=== PATIENT | male | born 1970 | race Two or more races ===

== ENCOUNTER 2019-10-20 13:58 | Inpatient (IN) | payer MEDICARE, OTHER ==
[~2019-10-20] VITALS: Ht 172.7 cm; Wt 106.6 kg
[2019-10-20] MEDS ORDERED: ACET-868 PO (14:41)
[2019-10-20] MEDS ORDERED: FLUT16SP16 NS (14:41)
[2019-10-20] MEDS ORDERED: SCOP1PAT11 TD (14:41)
[2019-10-20] MEDS ORDERED: DOCU-141 PO (14:41)
[2019-10-20] MEDS ORDERED: PANT40TA4 PO (14:41)
[2019-10-20] MEDS ORDERED: OXYC30TA48 PO (14:41)
[2019-10-20] MEDS ORDERED: TRAZ-257 PO (14:41)
[2019-10-20] MEDS ORDERED: METO25TA6 PO (14:41)
[2019-10-20] MEDS ORDERED: PRAV80TA21 PO (14:41)
[2019-10-20] MEDS ORDERED: ERGO500040 PO (14:41)
[2019-10-20] MEDS ORDERED: INSU100C10 SQ (14:41)
[2019-10-20] MEDS ORDERED: HYDR4TAB4 PO (14:41)
[2019-10-20] MEDS ORDERED: LOSA50TA39 PO (14:41)
[2019-10-20] MEDS ORDERED: SENN-168 PO (14:41)
[2019-10-20] MEDS ORDERED: BUPR-96 PO (14:41)
[2019-10-20] MEDS ORDERED: FLUT1DIS3 IH (14:41)
[2019-10-20] MEDS ORDERED: IBUP-1953 PO (14:41)
[2019-10-20] MEDS ORDERED: METH500T7 PO (14:41)
[2019-10-20 16:00] VITALS: BP 163/93
[2019-10-20] MEDS ORDERED: BLOOD SUGAR DIAGNOSTIC 1 EACH STRIP IN ONE ×2 (16:30→17:00)
[2019-10-20] MEDS ORDERED: MAG HYDROX/AL HYDROX/SIMETH 30 ML UDC PO PRN ×2 (16:30→17:00)
[2019-10-20] MEDS ORDERED: TEMAZEPAM 7.5 MG CAPSULE PO PRN ×2 (16:30→17:00)
[2019-10-20] MEDS ORDERED: MAGNESIUM HYDROXIDE 30 ML UDC PO PRN ×2 (16:30→17:00)
[2019-10-20] MEDS ORDERED: clonazePAM 0.5 MG TABLET PO PRN ×2 (16:30→17:00)
[2019-10-20 16:56] VITALS: BP 157/88
[2019-10-20] MEDS ORDERED: BUPROPION XL 150 MG TAB.ER.24 PO SCH (17:00)
--- NOTE | 2019-10-20 18:21 | NUR ---
SUPERVISOR PRE WAVE NOTE: PATIENT IS A 49 YEAR OLD MALE ADMITTED FROM [facility] ADMITTED ON A 5150 DTS. PER HOLD, "PT REPORTS ABDOMINAL PAIN AND THOUGHTS OF SUICIDE. HE INGESTED EXCESSIVE AMOUNTS OF TYLENOL. PT CANT CONTRACT FOR SAFETY." UPON FACE TO FACE ASSESSMENT, PATIENT IS ALERT AND ORIENTED X3, WELL GROOMED, CLEAR SPEECH, DENIES SI/HI VAH AT THIS TIME. COOPERATIVE, HOPELESS, DEPRESSED, GUARDED, ISOLATIVE, PASSIVE, FLAT AFFECT, DISORGANIZED THINKING. PATIENT IS AMBULATORY WITH WALKER. ABLE TO FOCUS ON TOPICS. VSS. NO ACUTE DISTRESS NOTED. INFORMED DR MARCANO AND DR ROSS OF ADMISSION WITH PSYCHIATRIC ADMITTING ORDERS/ MED RECON. NKA. UNIT ORIENTATION COMPLETE, HANDBOOK GIVEN WITH PATIENT'S RIGHTS AND GUIDE TO PRESCRIPTIONS. SKIN INTACT. CONTACTED ELIJAH PURI (DAUGHTER) AND INFORMED HER ABOUT ADMISSION. WILL CONTINUE TO MONITOR PATIENT Q15 MINUTES FOR SAFETY AND BEHAVIOR PER GPS PROTOCOL. Addendum: 10/20/19 at 1853 by CHERELLE GONZALEZ RN CARE PLAN NOT DONE. WILL ENDORSE TO FOLLOWING SHIFT.
[2019-10-20] MEDS ORDERED: SCOPOLAMINE HBR 1 EA PATCH.TD72 TD SCH (20:00)
[2019-10-20] MEDS ORDERED: HYDROMORPHONE HCL 2 MG TABLET PO PRN (20:00)
[2019-10-20] MEDS ORDERED: FLUTICASONE/SALMETEROL 1 DISK IH SCH (20:00)
[2019-10-20] MEDS ORDERED: METHOCARBAMOL (500MG) 500 MG TABLET PO PRN (20:00)
[2019-10-20] MEDS ORDERED: IBUPROFEN 600 MG TABLET PO PRN (20:00)
[2019-10-20 20:19] VITALS: BP 145/79
[2019-10-20] MEDS: oxyCODONE IR immediate release 5 MG PO PRN (20:58)
--- NOTE | 2019-10-20 21:01 | NUR ---
GPS RN NOTES: PT C/O OF PAIN ON BOTH KNEE AND BACK PAIN. PT STATED IS RATES AT A 8 OUT OF 10 PAIN. PT STATED, " CAN I HAVE MY OXY PLEASE FOR THIS PAIN?" CHECKED PTS VITALS WNL. ADMINISTER OXYCODONE 30MG PRN ORDERED. CONTINUE TO MONITOR.
[2019-10-20] MEDS ORDERED: PRAVASTATIN SODIUM 20 MG TABLET PO SCH (22:00)
[2019-10-20] MEDS: TRAZODONE 50 MG TABLET PO SCH (22:20)
[2019-10-20] MEDS: METOPROLOL TARTRATE 25 MG TABLET PO SCH (22:21)
[2019-10-20] MEDS: ATORVASTATIN 10 MG TABLET PO SCH (22:21)
[2019-10-20] MEDS: ARIPIPRAZOLE 5 MG TABLET PO SCH (22:22)
[2019-10-21 03:30] VITALS: BP 138/65
[2019-10-21] MEDS: oxyCODONE IR immediate release 5 MG PO PRN ×3 (03:39→18:08)
--- NOTE | 2019-10-21 03:45 | NUR ---
GPS RN NOTES: PT C/O OF PAIN ON BOTH KNEES. PT EXPRESSED FACIAL GRIMACE. WHEN ASKED PT TO RATE THE PAIN FROM 0-10. PT STATED IS RATES AT A 8 OUT OF 10 PAIN. PT STATED, " BOTH OF MY KNEES ARE IN PAIN RIGHT NOW. I NEED PAIN MEDICATION." CHECKED PTS VITALS WNL BP 138/65 HEART RATE 64, O2 SATURATION 96% RESPIRATION 20, TEMPT 98.0. ADMINISTER OXYCODONE 30MG PRN ORDERED. CONTINUE TO MONITOR.
[2019-10-21 06:52] LABS: ALBUMIN 3.5 g/dL (3.4-5.0); BILIRUBIN,TOTAL 0.8 mg/dL (0.2-1.0); CALCIUM, SERUM 8.4 mg/dL (8.5-10.1); CREATININE 0.8 mg/dL (0.6-1.3); POTASSIUM 3.2 mmol/L (3.5-5.1); TOTAL PROTEIN, SERUM 7.6 g/dL (6.4-8.2)
[2019-10-21 07:10] LABS: CHOLESTEROL 131 mg/dL (<200); HDL CHOLESTEROL 44 mg/dL (40-60); LDL 73 mg/dL (0-99); TRIGLYCERIDES 113 mg/dL (30-150)
[2019-10-21 08:00] VITALS: BP 146/77
[2019-10-21] MEDS: SENNOSIDES 8.6 MG TABLET PO SCH (08:42)
[2019-10-21] MEDS: PANTOPRAZOLE 40 MG TABLET.DR PO SCH ×2 (08:42→16:35)
[2019-10-21] MEDS: DOCUSATE SODIUM 100 MG CAPSULE PO SCH ×2 (08:42→08:44)
[2019-10-21] MEDS: LOSARTAN POTASSIUM 50 MG TABLET PO SCH ×2 (08:42→16:34)
[2019-10-21] MEDS: FLUTICASONE/VILANTEROL 1 EACH BLST.W.DEV IH SCH ×2 (08:47→08:50)
[2019-10-21] MEDS: POTASSIUM CHLORIDE 20 MEQ TAB.PRT.SR PO SCH ×2 (11:04→12:13)
--- NOTE | 2019-10-21 11:05 | NUR ---
RN NOTE: PT C/O 07/11 BILAT KNEE AND LOWER BACK PAIN. PT EXHIBITED FACIAL GRIMACE, GUARDING AND RUBBING SITE, LAYING IN BED. MED WITH OXYCODONE 30MG PO PRN. WILL EVALUATE EFFECTIVENESS.
--- NOTE | 2019-10-21 15:29 | NUR ---
INITIAL DISCHARGE PLAN: Patient wishes to return to his daughter Seda's house [address] [place] [address]. SW attempted to contact pts daughter Seda [phone] and left a voicemail for call back. VICKY will help form a safe and proper discharge in collaboration with .
--- NOTE | 2019-10-21 15:31 | NUR ---
FAMILY CONTACT: SW received a call from pts daughter Seda [phone] who confirmed that pt currently lives with her and is able to return home once stable for discharge.
[2019-10-21 16:00] VITALS: BP 131/70
[2019-10-21 20:25] VITALS: BP 155/85
[2019-10-21] MEDS: ARIPIPRAZOLE 5 MG TABLET PO SCH (22:05)
[2019-10-21] MEDS: METOPROLOL TARTRATE 25 MG TABLET PO SCH (22:06)
[2019-10-21] MEDS: ATORVASTATIN 10 MG TABLET PO SCH (22:07)
[2019-10-21] MEDS: TRAZODONE 50 MG TABLET PO SCH (22:08)
[2019-10-22] MEDS: oxyCODONE IR immediate release 5 MG PO PRN ×4 (00:29→23:19)
[2019-10-22 08:00] VITALS: BP 151/88
[2019-10-22] MEDS: SENNOSIDES 8.6 MG TABLET PO SCH (08:25)
[2019-10-22] MEDS: PANTOPRAZOLE 40 MG TABLET.DR PO SCH ×2 (08:25→16:09)
[2019-10-22] MEDS: DOCUSATE SODIUM 100 MG CAPSULE PO SCH ×2 (08:25→16:05)
[2019-10-22] MEDS: LOSARTAN POTASSIUM 50 MG TABLET PO SCH ×2 (08:25→16:22)
[2019-10-22] MEDS: FLUTICASONE/VILANTEROL 1 EACH BLST.W.DEV IH SCH (08:27)
--- NOTE | 2019-10-22 15:27 | NUR ---
SS Group Note 10/22/19: Goal: Patient will attend group held today from 2-2:30pm in the activities room and participate and/or actively listen to peers and be respectful. Intervention: SW facilitated group session with patients regarding what they would like to see change as a result of their stay here. SW explored reason for isolating. SW used reflective listening, validated and normalized the patients hesitation to discuss mental health with family. SW explored patients support system. SW educated pt. about therapy/support group benefits. SW will provide Medicare and [facility] approved outpatient therapists for pt. upon discharge. Response: Patient was agreeable to participating in group session. The patient expressed that he tends to isolate when he is under a lot of pain because he does not want to worry or burden his children. Per patient he is under so much pain at times that he does not value his life. Patient stated that he has so much to live for including: family, specially his granddaughter who he is the father figure for. Per patient, he doesnt really have someone to vent/ talk to about his mental health. Patient stated that he would be open to receiving outpatient therapy or support group services. The pt. remained calm and cooperative throughout group and was respectful towards his peers as they shared. Plan: Patient will be invited to attend next socially responsible investment adviser group session held.
[2019-10-22 16:00] VITALS: BP 135/63
--- NOTE | 2019-10-22 19:30 | NUR ---
GPS RN NOTE, RECEIVED PATIENT AWAKE AND IN BED, NO S/S OR COMPLAINTS OF PAIN AT THIS TIME. PATIENT IS DISPLAYING NO S/S OF APPARENT DISTRESS AT THIS TIME. PATIENT BREATHING IS UNLABORED WITH EQUAL RISE AND FALL OF THE CHEST. PATIENT IS ALERT AND ORIENTED X 3 ON ROOM AIR WITH A SPO2 98%. PATIENT COMPLAINT WITH MEDICATION, ANXIOUS, COOPERATIVE, MED SEEKING, GUARDED, SUSPICIOUS, AND NEEDS REORIENTATION. PATIENT DENIES SUICIDE AND HOMICIDAL IDEATIONS AT THIS TIME. PATIENT ASSISTED WITH TURNING AND REPOSITIONING Q2HR AND PRN FOR COMFORT AND CIRCULATION. PATIENT HAS NO NEEDS AT THIS TIME. PATIENT EDUCATED ON THE USE OF THE CALL [place]. PATIENT BED SIDE RAILS UP X2 FOR SAFETY, BED IS LOCKED AND LOW WILL CONTINUE TO MONITOR AND MAINTAIN SAFETY.
[2019-10-22 20:35] VITALS: BP 148/94
[2019-10-22] MEDS: TRAZODONE 50 MG TABLET PO SCH (21:41)
[2019-10-22] MEDS: ATORVASTATIN 10 MG TABLET PO SCH (21:41)
[2019-10-22] MEDS: METOPROLOL TARTRATE 25 MG TABLET PO SCH (21:42)
[2019-10-22] MEDS ORDERED: ARIPIPRAZOLE 5 MG TABLET PO SCH (22:00)
[2019-10-23] MEDS: oxyCODONE IR immediate release 5 MG PO PRN ×3 (06:36→19:36)
[2019-10-23 08:00] VITALS: BP 160/73
[2019-10-23] MEDS: DOCUSATE SODIUM 100 MG CAPSULE PO SCH ×2 (08:10→17:56)
[2019-10-23] MEDS: PANTOPRAZOLE 40 MG TABLET.DR PO SCH ×2 (08:10→17:56)
[2019-10-23] MEDS: FLUTICASONE/VILANTEROL 1 EACH BLST.W.DEV IH SCH (08:11)
[2019-10-23] MEDS: SENNOSIDES 8.6 MG TABLET PO SCH (08:11)
[2019-10-23] MEDS: LOSARTAN POTASSIUM 50 MG TABLET PO SCH ×3 (08:11→17:56)
--- NOTE | 2019-10-23 15:43 | NUR ---
GPS/RN PT C/O PAIN LEFT WRIST AND STATES HE HAD A FALL AT [facility]OUS [facility] WITHOUT XR TAKEN. DR BILLY CONTACTED VIA EXCHANGE AND ORDER PLACED FOR X RAY LEFT WRIST.
[2019-10-23 16:00] VITALS: BP 146/91
--- NOTE | 2019-10-23 19:13 | NUR ---
GPS/RN NOTE: AWAKE. ALERT, ORIENTED X3, DENIES ANY PAIN. NO APPARENT NOTED AT THIS TIME. WILL CONTINUE TO MONITOR.
--- NOTE | 2019-10-23 19:36 | NUR ---
GPS/RN NOTE: C/O SHARP PAIN ON HIS BACK AND KNEE, 8/10 ON PAIN SCALE, OXY IR 30 MG PO GIVEN
[2019-10-23 19:52] VITALS: BP 149/93
--- NOTE | 2019-10-23 20:23 | NUR ---
GPS/RN NOTE: C/O HEART BURN, MAALOX 30 ML PO GIVEN
[2019-10-23] MEDS: ATORVASTATIN 10 MG TABLET PO SCH (21:06)
[2019-10-23] MEDS: TRAZODONE 50 MG TABLET PO SCH (21:06)
[2019-10-23] MEDS: ARIPIPRAZOLE 5 MG TABLET PO SCH (21:06)
[2019-10-23] MEDS: METOPROLOL TARTRATE 25 MG TABLET PO SCH (21:07)
[2019-10-24] MEDS: oxyCODONE IR immediate release 5 MG PO PRN ×3 (05:24→21:11)
--- NOTE | 2019-10-24 05:25 | NUR ---
GPS/RN NOTE: UP TO NURSE'S STATION C/O BACK PAIN AND KNEE PAIN AT THE SAME TIME, 8/10 ON PAIN SCALE, OXY IR 30 MG PO GIVEN
[2019-10-24 08:00] VITALS: BP 169/71
[2019-10-24] MEDS: PANTOPRAZOLE 40 MG TABLET.DR PO SCH ×2 (08:51→16:30)
[2019-10-24] MEDS: SENNOSIDES 8.6 MG TABLET PO SCH (08:51)
[2019-10-24] MEDS: LOSARTAN POTASSIUM 50 MG TABLET PO SCH ×2 (08:51→16:31)
[2019-10-24] MEDS: DOCUSATE SODIUM 100 MG CAPSULE PO SCH ×2 (08:51→16:30)
[2019-10-24] MEDS: FLUTICASONE/VILANTEROL 1 EACH BLST.W.DEV IH SCH (08:56)
[2019-10-24 16:00] VITALS: BP 149/81
[2019-10-24 20:17] VITALS: BP 147/93
--- NOTE | 2019-10-24 20:39 | NUR ---
RECEIVED PT IN ROOM LYING IN BED, ALERT AND ORIENTED X3, NO S/S OF DISTRESS, RESPIRATION EVEN AND UNLABORED. ENVIRONMENTAL SAFETY CHECK DONE. FALL RISK MEASURES TAKEN. BED LOCKED AND IN LOWEST POSITION. BED ALARM ON. FLUID OFFERED TOLERATED. WILL CONTINUE TO MONITOR Q15 MINS. FOR MOOD, SAFETY AND Addendum: 10/24/19 at 2314 by ESTELLE MIRAMONTES RN THIS IS AN [facility]OTHER [facility]. RECEIVED PT IN ROOM LYING IN BED, ALERT AND ORIENTED X3, NO S/S OF DISTRESS, RESPIRATION EVEN AND UNLABORED. ENVIRONMENTAL SAFETY CHECK DONE. DENIES OMAYRA GRIFFITHS AT THIS TIME. MEDICATION COMPLIANT. FALL RISK MEASURES TAKEN. BED LOCKED AND IN LOWEST POSITION. BED ALARM ON. FLUID OFFERED TOLERATED. WILL CONTINUE TO MONITOR Q15 MINUTES FOR MOOD, SAFETY AND BEHAVIOR.
[2019-10-24] MEDS: ATORVASTATIN 10 MG TABLET PO SCH (21:13)
[2019-10-24] MEDS: METOPROLOL TARTRATE 25 MG TABLET PO SCH (21:14)
[2019-10-24] MEDS: TRAZODONE 50 MG TABLET PO SCH (21:50)
[2019-10-24] MEDS: ARIPIPRAZOLE 5 MG TABLET PO SCH (21:51)
--- NOTE | 2019-10-25 01:00 | NUR ---
PT REPORTED CHRONIC BACK, BILATERAL LOWER EXTREMITIES AND GENERALIZED BODY PAIN OF 8-9/10. REQUESTED FOR PAIN MED, OXY Ir 5MG, 6 TABS 30MG GIVEN PO AT 2110. PT WAS REASSESSED 2140. DENIES ANY PAIN. WILL CONTINUE TO MONITOR.
[2019-10-25] MEDS: oxyCODONE IR immediate release 5 MG PO PRN ×3 (05:13→19:28)
[2019-10-25 08:00] VITALS: BP 135/78
[2019-10-25] MEDS: DOCUSATE SODIUM 100 MG CAPSULE PO SCH ×2 (08:20→16:08)
[2019-10-25] MEDS: LOSARTAN POTASSIUM 50 MG TABLET PO SCH ×2 (08:20→16:33)
[2019-10-25] MEDS: SENNOSIDES 8.6 MG TABLET PO SCH (08:20)
[2019-10-25] MEDS: PANTOPRAZOLE 40 MG TABLET.DR PO SCH ×2 (08:20→16:33)
[2019-10-25] MEDS: ERGOCALCIFEROL (VITAMIN D 2) 50,000 UNIT CAPSULE PO SCH (08:24)
[2019-10-25] MEDS: FLUTICASONE/VILANTEROL 1 EACH BLST.W.DEV IH SCH (08:25)
[2019-10-25 16:00] VITALS: BP 146/91
[2019-10-25 20:12] VITALS: BP 140/84
[2019-10-25] MEDS: TRAZODONE 50 MG TABLET PO SCH (21:55)
[2019-10-25] MEDS: ATORVASTATIN 10 MG TABLET PO SCH (21:55)
[2019-10-25] MEDS: ARIPIPRAZOLE 5 MG TABLET PO SCH (21:55)
[2019-10-25] MEDS: METOPROLOL TARTRATE 25 MG TABLET PO SCH (21:56)
[2019-10-26] MEDS: oxyCODONE IR immediate release 5 MG PO PRN ×3 (04:49→17:39)
--- NOTE | 2019-10-26 04:51 | NUR ---
PT WOKE UP AT 0445 COMPLAINING SEVERE PAIN OF 9/10 ON BACK, AND KNEE. OXY IR 30 MG PO GIVEN. WILL CONTINUE TO MONITOR.
--- NOTE | 2019-10-26 06:12 | NUR ---
PT REFUSED PICTURES D/O PAIN
[2019-10-26 08:00] VITALS: BP 142/82
[2019-10-26] MEDS: SENNOSIDES 8.6 MG TABLET PO SCH (08:08)
[2019-10-26] MEDS: DOCUSATE SODIUM 100 MG CAPSULE PO SCH ×2 (08:08→16:05)
[2019-10-26] MEDS: PANTOPRAZOLE 40 MG TABLET.DR PO SCH ×2 (08:08→16:05)
[2019-10-26] MEDS: LOSARTAN POTASSIUM 50 MG TABLET PO SCH ×2 (08:09→16:06)
[2019-10-26] MEDS: FLUTICASONE/VILANTEROL 1 EACH BLST.W.DEV IH SCH (09:00)
--- NOTE | 2019-10-26 11:10 | NUR ---
GPS/RN NOTE: PATIENT C/O BACK GENERALIZED PAIN AND KNEE PAIN AT THE SAME TIME, 8/10 ON PAIN SCALE, OXY IR 30 MG PO GIVEN
--- NOTE | 2019-10-26 15:15 | NUR ---
SS GROUP NOTE 10/26/19 Goal: Patient will attend group held today from 2-2:30pm in the activities room and participate and/or actively listen to peers and be respectful. Intervention: SW facilitated group session with patients regarding recognizing positive aspects in their life. SW explored: things, people places they adore; one thing they have worked hard to achieve; one thing thats going well right now; two subjects or pursuits youre passionate about; two people you can count on; three things they look forward to. Response: Patient was agreeable to participating in group session. Patients, mood was WNL. The pt. shared with the group that she is thankful for his granddaughter. Pt. shared that his hobby of painting brings him Reina. Patient stated he looks forward to recuperating. The pt. remained calm and cooperative throughout group and was respectful towards her peers as they shared. Plan: Patient will be invited to attend next vp digital marketing social media and crm group session held and be encouraged to actively participate in group.
[2019-10-26 16:00] VITALS: BP 129/72
[2019-10-26] MEDS: ESCITALOPRAM OXALATE (10 MG) 10 MG TABLET PO SCH (16:05)
--- NOTE | 2019-10-26 17:40 | NUR ---
GPS/RN NOTE: PATIENT C/O GENERALIZED PAIN AND KNEE PAIN AT THE SAME TIME, 8/10 ON PAIN SCALE, OXY IR 30 MG PO GIVEN
[2019-10-26 20:59] VITALS: BP 150/95
[2019-10-26] MEDS: ARIPIPRAZOLE 5 MG TABLET PO SCH (21:36)
[2019-10-26] MEDS: ATORVASTATIN 10 MG TABLET PO SCH (21:36)
[2019-10-26] MEDS: TRAZODONE 50 MG TABLET PO SCH (21:36)
[2019-10-26] MEDS: METOPROLOL TARTRATE 25 MG TABLET PO SCH (21:36)
[2019-10-26 23:00] VITALS: BP 135/70
[2019-10-27] MEDS: oxyCODONE IR immediate release 5 MG PO PRN ×3 (02:36→16:36)
[2019-10-27 08:00] VITALS: BP 155/78
[2019-10-27] MEDS: FLUTICASONE/VILANTEROL 1 EACH BLST.W.DEV IH SCH (08:45)
[2019-10-27] MEDS: ESCITALOPRAM OXALATE (10 MG) 10 MG TABLET PO SCH (08:46)
[2019-10-27] MEDS: DOCUSATE SODIUM 100 MG CAPSULE PO SCH ×2 (08:46→16:35)
[2019-10-27] MEDS: LOSARTAN POTASSIUM 50 MG TABLET PO SCH ×2 (08:46→16:35)
[2019-10-27] MEDS: SENNOSIDES 8.6 MG TABLET PO SCH (08:46)
[2019-10-27] MEDS: PANTOPRAZOLE 40 MG TABLET.DR PO SCH ×2 (08:47→16:35)
--- NOTE | 2019-10-27 10:30 | NUR ---
PATIENT C/O 9/10 PAIN. PRN OXY PO GIVEN.
[2019-10-27 16:00] VITALS: BP 120/63
--- NOTE | 2019-10-27 16:37 | NUR ---
PATIENT C/O 9/10 PAIN. PRN OXY PO GIVEN.
--- NOTE | 2019-10-27 20:00 | NUR ---
GPS RN NOTE: PATIENT AWAKE, ALERT AND ORIENTED X 3-4, CALM, COOPERATIVE, C/O STUFFY NOSE AND ASKING FOR NASAL SPRAY. NOTIFIED ANIKA OLIVER WITH ORDERS GIVEN NOTED AND CARRIED OUT. WILL CONTINUE TO MONITOR Q15 MINS FOR SAFETY
[2019-10-27 20:56] VITALS: BP 155/93
[2019-10-27] MEDS ORDERED: ARIPIPRAZOLE 5 MG TABLET PO SCH (22:00)
[2019-10-27] MEDS: FLUTICASONE PROPIONATE 16 GM BOTTLE NS SCH (22:04)
[2019-10-27] MEDS: TRAZODONE 50 MG TABLET PO SCH (22:05)
[2019-10-27] MEDS: ATORVASTATIN 10 MG TABLET PO SCH (22:05)
[2019-10-27] MEDS: BENZTROPINE MESYLATE (1 MG) 1 MG TABLET PO SCH (22:05)
[2019-10-27] MEDS: METOPROLOL TARTRATE 25 MG TABLET PO SCH (22:06)
[2019-10-28] MEDS: oxyCODONE IR immediate release 5 MG PO PRN ×3 (04:56→18:46)
[2019-10-28 08:00] VITALS: BP 137/74
[2019-10-28] MEDS: FLUTICASONE/VILANTEROL 1 EACH BLST.W.DEV IH SCH (08:13)
[2019-10-28] MEDS: FLUTICASONE PROPIONATE 16 GM BOTTLE NS SCH (08:13)
[2019-10-28] MEDS: LOSARTAN POTASSIUM 50 MG TABLET PO SCH ×2 (08:14→16:50)
[2019-10-28] MEDS: PANTOPRAZOLE 40 MG TABLET.DR PO SCH ×2 (08:14→16:50)
[2019-10-28] MEDS: ESCITALOPRAM OXALATE (10 MG) 10 MG TABLET PO SCH (08:14)
[2019-10-28] MEDS: DOCUSATE SODIUM 100 MG CAPSULE PO SCH ×2 (08:14→16:50)
[2019-10-28] MEDS: SENNOSIDES 8.6 MG TABLET PO SCH (08:14)
--- NOTE | 2019-10-28 11:33 | NUR ---
RN NOTE: PATIENT C/O 9/10 PAIN. PRN OXY PO GIVEN.
[2019-10-28 16:00] VITALS: BP 116/52
--- NOTE | 2019-10-28 18:47 | NUR ---
PATIENT C/O 910 PAIN. PRN OXY GIVEN
--- NOTE | 2019-10-28 19:20 | NUR ---
GPS RN NOTES RECEIVED OOB TO WHEELCHAIR,A/O X4,ABLE TO VERBALIZED NEEDS,DENIES SUICIDAL IDEATION,NOR HEARING VOICES.CLAIMED PAIN ON LEFT KNEE IMPROVED,PAIN MANAGEMENT EFFECTIVE.MED COMPLIANT.WILL CONTINUE TO MONITOR BEHAVIOR Q 15 MINUTES AND MANAGE ACCORDINGLY.
[2019-10-28 20:00] VITALS: BP 144/73
[2019-10-28] MEDS: BENZTROPINE MESYLATE (1 MG) 1 MG TABLET PO SCH (21:31)
[2019-10-28] MEDS: TRAZODONE 50 MG TABLET PO SCH (21:32)
[2019-10-28] MEDS: ATORVASTATIN 10 MG TABLET PO SCH (21:34)
[2019-10-28 21:35] VITALS: BP 144/73
[2019-10-28] MEDS: METOPROLOL TARTRATE 25 MG TABLET PO SCH (21:37)
[2019-10-29] MEDS: oxyCODONE IR immediate release 5 MG PO PRN ×2 (05:27→19:45)
--- NOTE | 2019-10-29 05:27 | NUR ---
GPS RN NOTES PAIN MANAGEMENT AWAKE,THIS TIME,SITTING ON A WHEELCHAIR,C/O BILATERAL PAIN ON BOTH KNEES,8/10 ON PAIN SCALE.[id number] WITH OXY IR 30MG PO ORDERED FOR SEVERE PAIN
[2019-10-29 08:00] VITALS: BP 152/98
[2019-10-29] MEDS: ESCITALOPRAM OXALATE (10 MG) 10 MG TABLET PO SCH (08:41)
[2019-10-29] MEDS: DOCUSATE SODIUM 100 MG CAPSULE PO SCH ×2 (08:41→17:00)
[2019-10-29] MEDS: PANTOPRAZOLE 40 MG TABLET.DR PO SCH ×2 (08:41→17:00)
[2019-10-29] MEDS: SENNOSIDES 8.6 MG TABLET PO SCH (08:41)
[2019-10-29] MEDS: LOSARTAN POTASSIUM 50 MG TABLET PO SCH ×2 (08:42→17:00)
[2019-10-29] MEDS: FLUTICASONE/VILANTEROL 1 EACH BLST.W.DEV IH SCH (08:42)
[2019-10-29] MEDS: FLUTICASONE PROPIONATE 16 GM BOTTLE NS SCH (08:44)
[2019-10-29 16:00] VITALS: BP 132/73
[2019-10-29 20:36] VITALS: BP 150/78
[2019-10-29] MEDS: ATORVASTATIN 10 MG TABLET PO SCH (21:13)
[2019-10-29] MEDS: METOPROLOL TARTRATE 25 MG TABLET PO SCH (21:14)
[2019-10-29] MEDS: BENZTROPINE MESYLATE (1 MG) 1 MG TABLET PO SCH (21:14)
[2019-10-29] MEDS ORDERED: QUETIAPINE FUMARATE 25 MG TABLET PO SCH (22:00)
[2019-10-29] MEDS ORDERED: TRAZODONE 50 MG TABLET PO SCH (22:00)
[2019-10-29 23:06] VITALS: BP 130/72
[2019-10-30] MEDS: oxyCODONE IR immediate release 5 MG PO PRN ×3 (06:06→18:39)
[2019-10-30 08:00] VITALS: BP 122/71
[2019-10-30] MEDS: LOSARTAN POTASSIUM 50 MG TABLET PO SCH ×2 (08:59→17:43)
[2019-10-30] MEDS: PANTOPRAZOLE 40 MG TABLET.DR PO SCH ×2 (08:59→17:43)
[2019-10-30] MEDS: SENNOSIDES 8.6 MG TABLET PO SCH (08:59)
[2019-10-30] MEDS: ESCITALOPRAM OXALATE (10 MG) 10 MG TABLET PO SCH (08:59)
[2019-10-30] MEDS: DOCUSATE SODIUM 100 MG CAPSULE PO SCH ×2 (09:00→17:43)
[2019-10-30] MEDS: FLUTICASONE/VILANTEROL 1 EACH BLST.W.DEV IH SCH (09:30)
[2019-10-30] MEDS: FLUTICASONE PROPIONATE 16 GM BOTTLE NS SCH (09:30)
[2019-10-30 16:00] VITALS: BP 122/71
[2019-10-30 20:18] VITALS: BP 151/81
[2019-10-30] MEDS: ATORVASTATIN 10 MG TABLET PO SCH (21:27)
[2019-10-30] MEDS: BENZTROPINE MESYLATE (1 MG) 1 MG TABLET PO SCH (21:27)
[2019-10-30] MEDS: METOPROLOL TARTRATE 25 MG TABLET PO SCH (21:28)
[2019-10-30] MEDS ORDERED: QUETIAPINE FUMARATE 25 MG TABLET PO SCH (22:00)
[2019-10-31] MEDS: oxyCODONE IR immediate release 5 MG PO PRN ×3 (05:42→19:41)
[2019-10-31 08:00] VITALS: BP 132/79
[2019-10-31] MEDS: ESCITALOPRAM OXALATE (10 MG) 10 MG TABLET PO SCH (08:36)
[2019-10-31] MEDS: PANTOPRAZOLE 40 MG TABLET.DR PO SCH ×2 (08:36→16:55)
[2019-10-31] MEDS: SENNOSIDES 8.6 MG TABLET PO SCH (08:36)
[2019-10-31] MEDS: DOCUSATE SODIUM 100 MG CAPSULE PO SCH ×2 (08:36→16:55)
[2019-10-31] MEDS: FLUTICASONE PROPIONATE 16 GM BOTTLE NS SCH (08:37)
[2019-10-31] MEDS: LOSARTAN POTASSIUM 50 MG TABLET PO SCH ×2 (08:37→16:55)
[2019-10-31] MEDS: FLUTICASONE/VILANTEROL 1 EACH BLST.W.DEV IH SCH (08:37)
[2019-10-31 16:00] VITALS: BP 134/74
[2019-10-31] MEDS: QUETIAPINE FUMARATE 25 MG TABLET PO SCH (16:55)
[2019-10-31 20:27] VITALS: BP 146/71
[2019-10-31] MEDS ORDERED: QUETIAPINE FUMARATE 25 MG TABLET PO SCH (22:00)
[2019-10-31] MEDS: ATORVASTATIN 10 MG TABLET PO SCH (22:09)
[2019-10-31] MEDS: BENZTROPINE MESYLATE (1 MG) 1 MG TABLET PO SCH (22:09)
[2019-10-31] MEDS: METOPROLOL TARTRATE 25 MG TABLET PO SCH (22:10)
[2019-11-01] MEDS: oxyCODONE IR immediate release 5 MG PO PRN ×3 (06:47→20:48)
[2019-11-01 08:00] VITALS: BP 158/98
[2019-11-01] MEDS: DOCUSATE SODIUM 100 MG CAPSULE PO SCH ×3 (09:00→17:08)
[2019-11-01] MEDS: ESCITALOPRAM OXALATE (10 MG) 10 MG TABLET PO SCH (09:01)
[2019-11-01] MEDS: SENNOSIDES 8.6 MG TABLET PO SCH (09:01)
[2019-11-01] MEDS: PANTOPRAZOLE 40 MG TABLET.DR PO SCH ×2 (09:01→17:08)
[2019-11-01] MEDS: QUETIAPINE FUMARATE 25 MG TABLET PO SCH ×2 (09:01→21:48)
[2019-11-01] MEDS: ERGOCALCIFEROL (VITAMIN D 2) 50,000 UNIT CAPSULE PO SCH (09:01)
[2019-11-01] MEDS: LOSARTAN POTASSIUM 50 MG TABLET PO SCH ×2 (09:01→17:15)
[2019-11-01] MEDS: FLUTICASONE/VILANTEROL 1 EACH BLST.W.DEV IH SCH (09:29)
[2019-11-01] MEDS: FLUTICASONE PROPIONATE 16 GM BOTTLE NS SCH (09:29)
[2019-11-01 15:00] LABS: BASOPHILS # (AUTO) 0.1 /CMM (0.0-0.2); BASOPHILS % (AUTO) 0.8 % (0.0-2.0); HEMATOCRIT 45 % (39-51); HEMOGLOBIN 14.7 g/dL (13.5-17.5); LYMPHOCYTES # (AUTO) 1.5 /CMM (0.8-4.8); LYMPHOCYTES % (AUTO) 15.1 % (20.0-44.0); MEAN CORPUSCULAR HGB CONC 33 g/dl (31.0-36.0); MEAN CORPUSCULAR VOLUME 88 fL (80-96); MONOCYTES # (AUTO) 0.8 /CMM (0.1-1.30); NEUTROPHILS # (AUTO) 7.4 /CMM (1.8-8.9); NEUTROPHILS % (AUTO) 75.1 % (43.0-81.0); PLATELET COUNT (AUTO) 176 /CMM (150-450); RED BLOOD CELL COUNT(AUTO) 5.05 MIL/uL (4.5-6.0); WHITE BLOOD COUNT (AUTO) 9.9 K/uL (4.3-11.0)
[2019-11-01 15:10] LABS: ALBUMIN 3.8 g/dL (3.4-5.0); BILIRUBIN,TOTAL 0.4 mg/dL (0.2-1.0); CALCIUM, SERUM 9.1 mg/dL (8.5-10.1); POTASSIUM 4.4 mmol/L (3.5-5.1); TOTAL PROTEIN, SERUM 8.3 g/dL (6.4-8.2)
[2019-11-01 15:17] LABS: THYROID STIMULATING HORMONE 1.287 uIU/mL (0.358-3.74)
[2019-11-01 16:00] VITALS: BP 139/87
[2019-11-01 20:14] VITALS: BP 139/91
[2019-11-01] MEDS: BENZTROPINE MESYLATE (1 MG) 1 MG TABLET PO SCH (21:01)
[2019-11-01] MEDS: ATORVASTATIN 10 MG TABLET PO SCH (21:01)
[2019-11-01] MEDS: METOPROLOL TARTRATE 25 MG TABLET PO SCH (21:02)
[2019-11-02] MEDS: oxyCODONE IR immediate release 5 MG PO PRN ×3 (04:44→19:59)
[2019-11-02 08:00] VITALS: BP 123/52
[2019-11-02] MEDS: PANTOPRAZOLE 40 MG TABLET.DR PO SCH ×2 (08:52→17:06)
[2019-11-02] MEDS: SENNOSIDES 8.6 MG TABLET PO SCH (08:52)
[2019-11-02] MEDS: DOCUSATE SODIUM 100 MG CAPSULE PO SCH ×2 (08:53→17:06)
[2019-11-02] MEDS: LOSARTAN POTASSIUM 50 MG TABLET PO SCH ×2 (08:53→17:06)
[2019-11-02] MEDS: ESCITALOPRAM OXALATE (10 MG) 10 MG TABLET PO SCH (08:53)
[2019-11-02] MEDS ORDERED: QUETIAPINE FUMARATE 25 MG TABLET PO SCH (09:00)
[2019-11-02] MEDS: FLUTICASONE PROPIONATE 16 GM BOTTLE NS SCH (09:15)
[2019-11-02] MEDS: FLUTICASONE/VILANTEROL 1 EACH BLST.W.DEV IH SCH (09:15)
--- NOTE | 2019-11-02 14:24 | NUR ---
FAMILY CONTACT: VICKY contacted pts daughter Seda [phone] to inform her pt will be discharging on this present day back to her home. Daughter agreed and stated that pt is welcome back to her home but she is unable to provide transportation for him.
--- NOTE | 2019-11-02 14:49 | NUR ---
INDIVIDUAL SESSION: VICKY discussed pts discharge on this present day, pt is very anxious as he states he cannot go home until his prescriptions are faxed to his pharmacy. SW asked for the name of the pharmacy he would like his prescriptions faxed to and pt refused to provided SW with that information as he stated he needed to figure things out before arranging his discharge. VICKY provided intervention and informed pt he no longer met criteria for acute psychiatric hospitalization as he is denying suicidal ideation and has been hospitalized for 13 days. VICKY informed pt that this was the second time he attempted to postpone discharge and needed to discharge on this present day or tomorrow morning. Pt stated that he did not want to stay in the hospital and wanted to go home but was worried about not having his medications once he arrived home. VICKY informed him that she would give him some time to coordinate with his pharmacy before arranging discharge. VICKY also informed pt that transportation will be provided by the hospital via taxi voucher.
[2019-11-02 16:00] VITALS: BP 156/73
--- NOTE | 2019-11-02 16:03 | NUR ---
INDIVIDUAL SESSION: SW discussed pts discharge and pt began to cry stating that he did not know what to do and that he just did not care about living anymore and wanted to give up on life. Pt stated that his pain specialist was not going to be available until 11/05/19 and that he could not go home without pain medication. SW suggested he go to a SNF in the meantime as his pain is a trigger for his depression, pt stated that he did not care and did not want to think about discharging.
--- NOTE | 2019-11-02 16:08 | NUR ---
SNF REFERRAL: SW faxed SNF referral to Sapna, admission coordinator at [facility] Address: [address], [place] [address] for review.
--- NOTE | 2019-11-02 16:16 | NUR ---
INDIVIDUAL SESSION: SW discussed referral and discharged to SNF with pt, pt was less anxious and stated that he agreed with SNF placement and felt that it would be a good transition as he states he does not feel ready to return home at this time. Pt denied Suicidal ideation and stated that the medication he is on is making him feel like a zombie, SW informed him that psychiatrist has already discontinued his antidepressant medication and has started him on a new medication and antipsychotic. Pt agreed with his discharge tomorrow 11/03/19 to a SNF and treatment plan.
--- NOTE | 2019-11-02 16:21 | NUR ---
FAMILY CONTACT: SW contacted pts daughter Seda [phone] and left a voicemail informing her pt will not be discharging on this present day and will be discharged tomorrow to a SNF.
[2019-11-02 20:30] VITALS: BP 128/65
[2019-11-02] MEDS: QUETIAPINE FUMARATE 25 MG TABLET PO SCH (21:05)
[2019-11-02] MEDS: ATORVASTATIN 10 MG TABLET PO SCH (21:06)
[2019-11-02] MEDS: METOPROLOL TARTRATE 25 MG TABLET PO SCH (21:07)
[2019-11-03] MEDS: oxyCODONE IR immediate release 5 MG PO PRN ×2 (05:04→10:59)
[2019-11-03] MEDS: DOCUSATE SODIUM 100 MG CAPSULE PO SCH (08:40)
[2019-11-03] MEDS: SENNOSIDES 8.6 MG TABLET PO SCH (08:40)
[2019-11-03] MEDS: PANTOPRAZOLE 40 MG TABLET.DR PO SCH (08:40)
[2019-11-03 08:41] VITALS: BP 138/83
[2019-11-03] MEDS: FLUTICASONE PROPIONATE 16 GM BOTTLE NS SCH (08:41)
[2019-11-03] MEDS: LOSARTAN POTASSIUM 50 MG TABLET PO SCH (08:41)
[2019-11-03] MEDS: FLUTICASONE/VILANTEROL 1 EACH BLST.W.DEV IH SCH (08:42)
[2019-11-03] MEDS ORDERED: QUETIAPINE FUMARATE 25 MG TABLET PO SCH (09:00)
[2019-11-03] MEDS ORDERED: ESCITALOPRAM OXALATE (10 MG) 10 MG TABLET PO SCH (09:00)
--- NOTE | 2019-11-03 11:21 | NUR ---
DISCHARGE NOTE: Pt will be [facility] at 12:00pm [facility] [address] [address] [facility] [address] . Pt's daughter Seda [phone] has been notified via voicemail. Pts mood is euthymic with congruent affect. Pt denied visual/auditory hallucinations and denied suicidal/homicidal ideation. Pt will be under the care of Psychiatrist: Dr. Oden Address: [address] [place] [address] and Cigarette Packer: Dr Gil Address: [address] [place] [address] . The multidisciplinary exit care form was done, printed, signed, and given to the patient.
--- NOTE | 2019-11-03 13:18 | NUR ---
Pt discharge by Dr. Oden. Automotive Professional agrees with discharge plan. [facility]. Pt is alert oriented x 4. pt is calm and cooperative. denies s/i and/or h/i at time of discharge. Vital sign stable. Exitcare completed. Skin assessment done. med reconciled. Belongings returned. Report given to receiving nurse, ALEXANDRU Leggett. Pt left via ambulance in stable condition.
--- NOTE | 2019-11-11 13:58 | NUR ---
15 DAY SUBSTANCE ABUSE FOLLOW UP: Excluded due to D/C to SNF.
== END 2019-11-03 13:15 | DRG 885 ==
LOC: GPS 13:58
PROVIDERS: ADMIT Psychiatry & Neurology Psychiatry
DX: F33.3 Major depressive disorder, recurrent, severe with psychotic symptoms (principal); F23 Brief psychotic disorder; R45.851 Suicidal ideations; E78.5 Hyperlipidemia, unspecified; E66.9 Obesity, unspecified; E11.9 Type 2 diabetes mellitus without complications; T39.1X2D Poisoning by 4-Aminophenol derivatives, intentional self-harm, subsequent encounter; Z96.641 Presence of right artificial hip joint; I10 Essential (primary) hypertension; G89.29 Other chronic pain; M19.90 Unspecified osteoarthritis, unspecified site; K59.00 Constipation, unspecified; J45.909 Unspecified asthma, uncomplicated; F41.9 Anxiety disorder, unspecified; Z68.35 Body mass index [BMI] 35.0-35.9, adult; Z79.891 Long term (current) use of opiate analgesic; M25.562 Pain in left knee; Z96.651 Presence of right artificial knee joint
CPT/HCPCS: 36415; 73100-TC; 73564-TC; 80053-TC; 80061-TC; 82962-TC; 84443-TC; 85025-TC; 87081-TC; 97116-TC; 97530-TC

== ENCOUNTER 2023-01-23 00:49 | Emergency (ER) | payer MEDICARE, OTHER ==
[~2023-01-23] VITALS: Ht 175.3 cm; Wt 117.5 kg
[~2023-01-23 00:49] MED LIST: ACET-868 PO; BUPR-96 PO; DOCU-141 PO; ERGO500040 PO; FLUT16SP16 NS; FLUT1DIS3 IH; HYDR4TAB4 PO; IBUP-1953 PO; INSU100C10 SQ; LOSA50TA39 PO; METH-647 PO; METO25TA6 PO; OXYC30TA48 PO; PANT40TA49 PO; PRAV80TA21 PO; SCOP1PAT11 TD; SENN-261 PO; TRAZ-257 PO
[2023-01-23 00:59] VITALS: BP 166/90
--- NOTE | 2023-01-23 00:59 | NUR ---
LEONIDES. CHRONIC BACK AND BILAT KNEE PAIN. RAN OUT OF OXYCODONE AT THE [facility]. PT A/OX4. TOLERATING R/A WELL WITH NO RESP DISTRESS. SAFETY MEASURES IN PLACE.
[2023-01-23] MEDS ORDERED: oxyCODONE HCL SR 10MG TAB.SR.12H PO SCH (01:00)
[2023-01-23] MEDS ORDERED: oxyCODONE HCL SR 10MG TAB.SR.12H PO ONE (01:29)
[2023-01-23] MEDS ORDERED: MORPHINE SULFATE INJ 2 MG/ML DISP.SYRIN IM ONE (01:30)
--- NOTE | 2023-01-23 01:42 | NUR ---
MEDICATION WAS TAKEN FROM ICU UNIT D/T [facility]
--- NOTE | 2023-01-23 01:51 | NUR ---
[facility] WILL BE TAKING PT BACK TO THE SNF. PT IS IN STABLE CONDITION FOR TRANSPORT.
== END 2023-01-23 01:53 | disposition home or self-care (01) ==
LOC: ER 00:51
DX: M25.562 Pain in left knee (principal); M25.561 Pain in right knee; M25.551 Pain in right hip; G89.29 Other chronic pain; I10 Essential (primary) hypertension; E11.9 Type 2 diabetes mellitus without complications; Z79.899 Other long term (current) drug therapy; Z79.4 Long term (current) use of insulin

== ENCOUNTER 2023-04-09 09:56 | Outpatient (CLI) | payer MEDICARE, OTHER | END 2023-04-09 23:59 | disposition home or self-care (01) | LOC: MSC 09:56 | PROVIDERS: ATTEND Anesthesiology | DX: G89.4 Chronic pain syndrome (principal); M54.16 Radiculopathy, lumbar region; M62.830 Muscle spasm of back; M79.606 Pain in leg, unspecified; M25.561 Pain in right knee; M25.562 Pain in left knee; M65.4 Radial styloid tenosynovitis [de Quervain]; F11.20 Opioid dependence, uncomplicated ==

== ENCOUNTER 2023-05-21 10:10 | Outpatient (CLI) | payer MEDICARE, OTHER | END 2023-05-21 23:59 | disposition home or self-care (01) | LOC: MSC 10:10 | PROVIDERS: ATTEND Anesthesiology | DX: G89.4 Chronic pain syndrome (principal); M54.16 Radiculopathy, lumbar region; M62.830 Muscle spasm of back; M79.606 Pain in leg, unspecified; M25.561 Pain in right knee; M25.562 Pain in left knee; M65.4 Radial styloid tenosynovitis [de Quervain]; F11.20 Opioid dependence, uncomplicated ==

== ENCOUNTER 2023-07-30 09:53 | Outpatient (CLI) | payer MEDICARE, OTHER | END 2023-07-30 23:59 | disposition home or self-care (01) | LOC: MSC 09:53 | PROVIDERS: ATTEND Anesthesiology | DX: G89.4 Chronic pain syndrome (principal); M54.16 Radiculopathy, lumbar region; M62.830 Muscle spasm of back; M25.561 Pain in right knee; M25.562 Pain in left knee; F11.20 Opioid dependence, uncomplicated; M65.4 Radial styloid tenosynovitis [de Quervain]; M79.606 Pain in leg, unspecified ==

== ENCOUNTER 2025-03-22 18:40 | Inpatient (IN) | payer MEDICARE, OTHER ==
[~2025-03-22] VITALS: Ht 172.7 cm; Wt 110.2 kg
[~2025-03-22 18:40] MED LIST changes: +FLUT16SP16 BNOSTRILS; -FLUT16SP16 NS
[2025-03-22] MEDS ORDERED: KETOROLAC TROMETHAMINE INJ 30 MG/ML VIAL ONE (19:04)
[2025-03-22] MEDS ORDERED: METHOCARBAMOL (500MG) 500 MG TABLET ONE (19:04)
[2025-03-22] MEDS ORDERED: dexAMETHasone 1 MG TABLET ONE (19:07)
[2025-03-22] MEDS ORDERED: dexAMETHasone 4 MG TABLET ONE (19:08)
[2025-03-22] MEDS: METHOCARBAMOL (750MG) 750 MG TABLET PO STA (19:14)
[2025-03-22] MEDS: KETOROLAC TROMETHAMINE INJ 30 MG/ML VIAL IM ONE (19:14)
[2025-03-22] MEDS: dexAMETHasone 1 MG TABLET PO ONE (19:15)
[2025-03-22 19:24] LABS: BASOPHILS % (AUTO) 0.5 % (0.0-2.0); EOSINOPHILS # (AUTO) 0.1 K/uL (0.0-0.7); EOSINOPHILS % (AUTO) 1.7 % (0.0-6.0); HEMATOCRIT 48 % (39-51); HEMOGLOBIN 17.3 g/dL (13.5-17.5); LYMPHOCYTES % (AUTO) 26.7 % (20.0-44.0); MEAN CORPUSCULAR HEMOGLOBIN 31 PG (26.0-33.0); MEAN CORPUSCULAR HGB CONC 36 g/dl (31.0-36.0); MEAN CORPUSCULAR VOLUME 85 fL (80-96); MONOCYTES # (AUTO) 0.7 K/uL (0.1-1.30); MONOCYTES % (AUTO) 9.4 % (2.0-12.0); NEUTROPHILS # (AUTO) 4.6 K/uL (1.8-8.9); NEUTROPHILS % (AUTO) 61.7 % (43.0-81.0); PLATELET COUNT (AUTO) 143 K/uL (150-450); RED BLOOD CELL COUNT(AUTO) 5.62 MIL/uL (4.5-6.0); RED CELL DISTRIBUTION WIDTH 13.8 % (11.5-15.0); WHITE BLOOD COUNT (AUTO) 7.5 K/uL (4.3-11.0)
[2025-03-22 19:29] LABS: CALCIUM, SERUM 9.6 mg/dL (8.5-10.1); CREATININE 0.8 mg/dL (0.6-1.3); POTASSIUM 3.6 mmol/L (3.5-5.1)
[2025-03-22] MEDS ORDERED: PYRI-7 PO (19:29)
[2025-03-22] MEDS ORDERED: NA P133E RC (19:29)
[2025-03-22] MEDS ORDERED: CARB-273 EACHEYE (19:29)
[2025-03-22] MEDS ORDERED: METF-442 PO (19:29)
[2025-03-22] MEDS ORDERED: MAGN400T52 PO (19:29)
[2025-03-22] MEDS ORDERED: DICL100G34 TP (19:29)
[2025-03-22] MEDS ORDERED: GLUC1KIT IM (19:29)
[2025-03-22] MEDS ORDERED: SEMA0.25 SQ (19:29)
[2025-03-22] MEDS ORDERED: ATOR20TA PO (19:29)
[2025-03-22] MEDS ORDERED: BISA10SU11 RC (19:29)
[2025-03-22] MEDS ORDERED: PREG50CA PO (19:29)
[2025-03-22] MEDS ORDERED: SERT100T12 PO (19:29)
[2025-03-22] MEDS ORDERED: CRAN300T PO (19:29)
[2025-03-22] MEDS ORDERED: ALBU90AE IH (19:29)
[2025-03-22] MEDS ORDERED: EMPA25TA PO (19:29)
[2025-03-22] MEDS ORDERED: MAGN400O6 PO (19:29)
[2025-03-22 19:35] LABS: ALBUMIN 4.1 g/dL (3.4-5.0); BILIRUBIN,DIRECT 0.2 mg/dL (0.0-0.2); BILIRUBIN,TOTAL 0.9 mg/dL (0.2-1.0); TOTAL PROTEIN, SERUM 8.5 g/dL (6.4-8.2)
[2025-03-22 20:47] LABS: APPEARANCE,URINE CLEAR (CLEAR); BILIRUBIN,URINE Negative (NEGATIVE); BLOOD, URINE Negative Ery/uL (NEGATIVE); COLOR,URINE YELLOW (YELLOW); KETONES,URINE 15 mg/dL (NEGATIVE); LEUKOCYTE ESTERASE ,URINE Negative (NEGATIVE); PH,URINE 5.5 (5.0-8.0); PROTEIN,URINE Trace mg/dl (NEGATIVE); UGLUCOSE 500 MG/DL mg/dL (NEGATIVE); UROBILINOGEN,URINE 0.2 EU/dL (0.2)
[2025-03-22 20:48] LABS: NITRITE, URINE NEGATIVE (NEGATIVE)
[2025-03-22] MEDS ORDERED: MORPHINE SULFATE INJ 4 MG/ML DISP.SYRIN ONE (20:58)
[2025-03-22] MEDS: MORPHINE SULFATE INJ 2 MG/ML DISP.SYRIN IV ONE (21:06)
[2025-03-22 21:45] LABS: ADD URINE CULTURE NO; BACTERIA,URINE None seen /HPF (None Seen); RBC,URINE 0-2 /HPF (0-2); WBC,URINE 0-2 /HPF (0-3)
[2025-03-22] MEDS ORDERED: ONDANSETRON HCL/PF 4 MG/2 ML VIAL IVP PRN (23:00)
[2025-03-22] MEDS ORDERED: DEXTROSE 50%-WATER 50 ML DISP.SYRIN IV PRN (23:00)
[2025-03-22] MEDS ORDERED: Z GUARD REMEDY 4 OZ OINT TP PRN (23:00)
[2025-03-22] MEDS ORDERED: ACETAMINOPHEN 325 MG TABLET PO PRN (23:00)
[2025-03-22] MEDS ORDERED: MAGNESIUM HYDROXIDE 30 ML UDC PO PRN (23:00)
[2025-03-22 23:30] VITALS: BP 144/75; TEMP 98.2; O2SAT 96
[2025-03-22] MEDS: PREGABALIN 25 MG CAPSULE PO SCH (23:44)
[2025-03-22] MEDS: ENOXAPARIN SODIUM 40 MG/0.4 ML DISP.SYRIN SQ SCH (23:44)
[2025-03-22] MEDS: METHOCARBAMOL (750MG) 750 MG TABLET PO SCH (23:44)
[2025-03-23] MEDS: HYDROMORPHONE 1 MG/1 ML DISP.SYRIN IV PRN ×2 (00:48→17:52)
[2025-03-23] MEDS: oxyCODONE IR immediate release 5 MG TABLET PO PRN (04:52)
[2025-03-23] MEDS: BLOOD SUGAR DIAGNOSTIC 1 EACH STRIP IN SCH (06:30)
[2025-03-23] MEDS: INSULIN REGULAR, HUMAN 100 UNIT/ML 3 ML VIAL SQ PRN (06:33)
[2025-03-23 07:17] LABS: CALCIUM, SERUM 9.2 mg/dL (8.5-10.1); CREATININE 0.8 mg/dL (0.6-1.3); MAGNESIUM 2.3 mg/dL (1.8-2.4); PHOSPHORUS 3.8 mg/dL (2.5-4.9); POTASSIUM 4.1 mmol/L (3.5-5.1)
[2025-03-23] MEDS: PANTOPRAZOLE 40 MG TABLET.DR PO SCH (07:30)
[2025-03-23 08:00] VITALS: BP 119/60; TEMP 98.6; O2SAT 96
[2025-03-23 08:14] LABS: BASOPHILS % (AUTO) 0.1 % (0.0-2.0); EOSINOPHILS % (AUTO) 0.1 % (0.0-6.0); HEMATOCRIT 47 % (39-51); HEMOGLOBIN 16.5 g/dL (13.5-17.5); LYMPHOCYTES # (AUTO) 0.7 K/uL (0.8-4.8); LYMPHOCYTES % (AUTO) 8.8 % (20.0-44.0); MEAN CORPUSCULAR HEMOGLOBIN 30 PG (26.0-33.0); MEAN CORPUSCULAR HGB CONC 35 g/dl (31.0-36.0); MEAN CORPUSCULAR VOLUME 86 fL (80-96); MONOCYTES # (AUTO) 0.1 K/uL (0.1-1.30); MONOCYTES % (AUTO) 1.1 % (2.0-12.0); NEUTROPHILS # (AUTO) 7.3 K/uL (1.8-8.9); NEUTROPHILS % (AUTO) 89.9 % (43.0-81.0); PLATELET COUNT (AUTO) 153 K/uL (150-450); RED BLOOD CELL COUNT(AUTO) 5.51 MIL/uL (4.5-6.0); RED CELL DISTRIBUTION WIDTH 13.8 % (11.5-15.0); WHITE BLOOD COUNT (AUTO) 8.1 K/uL (4.3-11.0)
[2025-03-23] MEDS: PYRIDOXINE HCL 50 MG TABLET PO SCH (08:33)
[2025-03-23] MEDS: SERTRALINE HCL 50 MG TABLET PO SCH (08:33)
[2025-03-23] MEDS: LOSARTAN POTASSIUM 50 MG TABLET PO SCH (08:34)
[2025-03-23] MEDS: EMPAGLIFLOZIN 25 MG TABLET PO SCH (08:38)
[2025-03-23] MEDS: FLUTICASONE PROPIONATE 16 GM BOTTLE NS SCH (08:39)
[2025-03-23] MEDS ORDERED: KETOROLAC TROMETHAMINE INJ 30 MG/ML VIAL IM PRN (10:00)
[2025-03-23] MEDS: KETOROLAC TROMETHAMINE INJ 30 MG/ML VIAL IV PRN (10:36)
[2025-03-23 16:00] VITALS: BP 129/100; TEMP 98.1; O2SAT 98
[2025-03-23 20:00] VITALS: BP_SYST 107; BP_DIAS 55; BP_DIAS 75; TEMP 98.2; O2SAT 96
[2025-03-23] MEDS: ATORVASTATIN 10 MG TABLET PO SCH (22:20)
[2025-03-23] MEDS: METOPROLOL TARTRATE 25 MG TABLET PO SCH (22:21)
[2025-03-23] MEDS: SENNOSIDES 8.6 MG TABLET PO SCH (22:21)
[2025-03-24 06:50] LABS: BASOPHILS % (AUTO) 0.2 % (0.0-2.0); EOSINOPHILS % (AUTO) 0.1 % (0.0-6.0); HEMATOCRIT 49 % (39-51); LYMPHOCYTES # (AUTO) 1.5 K/uL (0.8-4.8); LYMPHOCYTES % (AUTO) 12.4 % (20.0-44.0); MEAN CORPUSCULAR HEMOGLOBIN 30 PG (26.0-33.0); MEAN CORPUSCULAR HGB CONC 34 g/dl (31.0-36.0); MEAN CORPUSCULAR VOLUME 86 fL (80-96); MONOCYTES # (AUTO) 0.9 K/uL (0.1-1.30); MONOCYTES % (AUTO) 7.6 % (2.0-12.0); NEUTROPHILS # (AUTO) 9.5 K/uL (1.8-8.9); NEUTROPHILS % (AUTO) 79.7 % (43.0-81.0); PLATELET COUNT (AUTO) 157 K/uL (150-450); RED BLOOD CELL COUNT(AUTO) 5.76 MIL/uL (4.5-6.0); RED CELL DISTRIBUTION WIDTH 13.8 % (11.5-15.0); WHITE BLOOD COUNT (AUTO) 11.9 K/uL (4.3-11.0)
[2025-03-24 06:55] LABS: CREATININE 0.8 mg/dL (0.6-1.3); MAGNESIUM 2.5 mg/dL (1.8-2.4); PHOSPHORUS 3.7 mg/dL (2.5-4.9); POTASSIUM 4.5 mmol/L (3.5-5.1)
[2025-03-24 07:00] VITALS: BP 124/69; TEMP 97.9; O2SAT 96
[2025-03-24] MEDS: GLUCERNA SHAKE 237 ML CAN PO SCH (08:59)
[2025-03-24 16:00] VITALS: BP 139/67; TEMP 98.1; O2SAT 95
[2025-03-24 20:00] VITALS: BP 132/82; TEMP 98.2; O2SAT 95
[2025-03-24] MEDS: DICLOFENAC TOPICAL 100 GM TUBE TP PRN (22:37)
[2025-03-25 07:00] VITALS: BP 141/97; TEMP 97.4; O2SAT 98
[2025-03-25 09:56] LABS: CALCIUM, SERUM 8.9 mg/dL (8.5-10.1); CREATININE 0.8 mg/dL (0.6-1.3); MAGNESIUM 2.6 mg/dL (1.8-2.4); PHOSPHORUS 3.4 mg/dL (2.5-4.9); POTASSIUM 4.4 mmol/L (3.5-5.1)
[2025-03-25 10:04] LABS: BASOPHILS % (AUTO) 0.5 % (0.0-2.0); EOSINOPHILS % (AUTO) 0.5 % (0.0-6.0); HEMATOCRIT 50 % (39-51); HEMOGLOBIN 17.1 g/dL (13.5-17.5); LYMPHOCYTES # (AUTO) 1.6 K/uL (0.8-4.8); LYMPHOCYTES % (AUTO) 21.8 % (20.0-44.0); MEAN CORPUSCULAR HEMOGLOBIN 30 PG (26.0-33.0); MEAN CORPUSCULAR HGB CONC 35 g/dl (31.0-36.0); MEAN CORPUSCULAR VOLUME 86 fL (80-96); MONOCYTES # (AUTO) 0.7 K/uL (0.1-1.30); MONOCYTES % (AUTO) 9.4 % (2.0-12.0); NEUTROPHILS # (AUTO) 5.1 K/uL (1.8-8.9); NEUTROPHILS % (AUTO) 67.8 % (43.0-81.0); PLATELET COUNT (AUTO) 159 K/uL (150-450); RED BLOOD CELL COUNT(AUTO) 5.75 MIL/uL (4.5-6.0); RED CELL DISTRIBUTION WIDTH 13.6 % (11.5-15.0); WHITE BLOOD COUNT (AUTO) 7.5 K/uL (4.3-11.0)
[2025-03-25 16:00] VITALS: BP 126/70; TEMP 97.9; O2SAT 94
[2025-03-25 16:50] VITALS: BP 126/70; TEMP 97.9
[2025-03-25] MEDS: HYDROMORPHONE 1 MG/1 ML DISP.SYRIN IV PRN (21:43)
[2025-03-25 21:54] VITALS: BP 142/68; TEMP 98.4; O2SAT 97
[2025-03-25 22:06] VITALS: BP 142/68; TEMP 98.4; O2SAT 97
[2025-03-26 06:55] LABS: BASOPHILS % (AUTO) 0.2 % (0.0-2.0); EOSINOPHILS # (AUTO) 0.1 K/uL (0.0-0.7); EOSINOPHILS % (AUTO) 0.8 % (0.0-6.0); HEMATOCRIT 49 % (39-51); HEMOGLOBIN 16.9 g/dL (13.5-17.5); LYMPHOCYTES # (AUTO) 2.2 K/uL (0.8-4.8); LYMPHOCYTES % (AUTO) 27.4 % (20.0-44.0); MEAN CORPUSCULAR HEMOGLOBIN 29 PG (26.0-33.0); MEAN CORPUSCULAR HGB CONC 35 g/dl (31.0-36.0); MEAN CORPUSCULAR VOLUME 85 fL (80-96); MONOCYTES # (AUTO) 0.8 K/uL (0.1-1.30); MONOCYTES % (AUTO) 9.4 % (2.0-12.0); NEUTROPHILS % (AUTO) 62.2 % (43.0-81.0); PLATELET COUNT (AUTO) 150 K/uL (150-450); RED BLOOD CELL COUNT(AUTO) 5.76 MIL/uL (4.5-6.0); RED CELL DISTRIBUTION WIDTH 13.6 % (11.5-15.0)
[2025-03-26 07:04] LABS: CALCIUM, SERUM 9.1 mg/dL (8.5-10.1); CREATININE 0.6 mg/dL (0.6-1.3); MAGNESIUM 2.5 mg/dL (1.8-2.4); PHOSPHORUS 3.6 mg/dL (2.5-4.9); POTASSIUM 3.9 mmol/L (3.5-5.1)
[2025-03-26 07:30] VITALS: BP 142/76; TEMP 98.1; O2SAT 100
[2025-03-26] MEDS ORDERED: IV NS 0.9% 250 ML IV ONE (14:08)
[2025-03-26] MEDS ORDERED: IOHEXOL-300 100 ML VIAL IV ONE (14:08)
[2025-03-26 16:00] VITALS: BP 126/60; TEMP 98.2; O2SAT 92
[2025-03-26 20:00] VITALS: BP 139/59; TEMP 98.2; O2SAT 95
[2025-03-27 07:35] LABS: BASOPHILS % (AUTO) 0.3 % (0.0-2.0); EOSINOPHILS # (AUTO) 0.1 K/uL (0.0-0.7); EOSINOPHILS % (AUTO) 1.4 % (0.0-6.0); HEMATOCRIT 51 % (39-51); HEMOGLOBIN 17.8 g/dL (13.5-17.5); LYMPHOCYTES # (AUTO) 2.2 K/uL (0.8-4.8); LYMPHOCYTES % (AUTO) 27.7 % (20.0-44.0); MEAN CORPUSCULAR HEMOGLOBIN 30 PG (26.0-33.0); MEAN CORPUSCULAR HGB CONC 35 g/dl (31.0-36.0); MEAN CORPUSCULAR VOLUME 85 fL (80-96); MONOCYTES # (AUTO) 0.7 K/uL (0.1-1.30); MONOCYTES % (AUTO) 8.8 % (2.0-12.0); NEUTROPHILS # (AUTO) 4.8 K/uL (1.8-8.9); NEUTROPHILS % (AUTO) 61.8 % (43.0-81.0); PLATELET COUNT (AUTO) 155 K/uL (150-450); RED BLOOD CELL COUNT(AUTO) 5.96 MIL/uL (4.5-6.0); RED CELL DISTRIBUTION WIDTH 13.6 % (11.5-15.0); WHITE BLOOD COUNT (AUTO) 7.8 K/uL (4.3-11.0)
[2025-03-27 08:43] VITALS: BP 148/68
[2025-03-27 09:24] LABS: CALCIUM, SERUM 9.1 mg/dL (8.5-10.1); CREATININE 0.7 mg/dL (0.6-1.3); MAGNESIUM 2.9 mg/dL (1.8-2.4); PHOSPHORUS 3.7 mg/dL (2.5-4.9); POTASSIUM 4.2 mmol/L (3.5-5.1)
[2025-03-28] MEDS ORDERED: ERGOCALCIFEROL (VITAMIN D 2) 50,000 UNIT CAPSULE PO SCH (09:00)
== END 2025-03-27 13:40 | DRG 552 ==
LOC: ER 18:45 → MED 21:47
PROVIDERS: ADMIT Nurse Practitioner Family; ATTEND Student in an Organized Health Care Education/Training Program
DX: M51.362 Other intervertebral disc degeneration, lumbar region with discogenic back pain and lower extremity pain (principal); M25.551 Pain in right hip; D69.6 Thrombocytopenia, unspecified; G89.4 Chronic pain syndrome; E11.42 Type 2 diabetes mellitus with diabetic polyneuropathy; M79.661 Pain in right lower leg; E78.5 Hyperlipidemia, unspecified; F20.9 Schizophrenia, unspecified; I10 Essential (primary) hypertension; Z79.84 Long term (current) use of oral hypoglycemic drugs; J44.9 Chronic obstructive pulmonary disease, unspecified; M19.90 Unspecified osteoarthritis, unspecified site; F32.A Depression, unspecified; Z79.891 Long term (current) use of opiate analgesic; Z96.641 Presence of right artificial hip joint; M47.26 Other spondylosis with radiculopathy, lumbar region
CPT/HCPCS: 36415; 72131-TC; 73701-TC; 80048-TC; 80076-TC; 81001; 82962-TC; 83735-TC; 84100-TC; 85025-TC; 87081-TC; 93971-TC; 97110-TC; 97112-TC; 97116-TC; 97530-TC; G0378; J1171; J1650; J1815; J1885; J2270; J7050; J8540; Q9967